=== PATIENT | female | born 1975 | race Caucasian/White ===

== ENCOUNTER 2017-04-12 17:54 | Emergency (ER) | payer OTHER ==
[~2017-04-12] VITALS: Ht 160 cm; Wt 54.9 kg
[~2017-04-12 17:54] MED LIST: PROTONIX20 MG PO; ZANTAC150 M3 PO
[2017-04-13] MEDS ORDERED: ZOFRAN4 MG PO (02:22)
[2017-04-13] MEDS ORDERED: PROTONIX40 M1 PO (02:22)
== END 2017-04-13 02:18 | disposition home or self-care (01) ==
LOC: ER 17:54
DX: K29.70 Gastritis, unspecified, without bleeding (principal)